=== PATIENT | female | born 1930 | race African-American/Black ===

== ENCOUNTER 2019-06-04 22:49 | Inpatient (IN) | payer MEDICARE, OTHER ==
[~2019-06-04] VITALS: Ht 162.6 cm; Wt 76.6 kg
[~2019-06-04 22:49] MED LIST: ACE650RS PR; AML5T PO; ASPI-231 PO; ATOR10TA52 PO; HYDR-531 PO; HYOS0.1250 PO; INSU70IN3 SC; LEVO175T31 PO; LEVO750T64 PO; MECL1TAB42 PO; METO-169 PO
[2019-06-04] MEDS ORDERED: InsuLIN REG 1unit/0.01ml Soln (100units/ml) IV ONE (23:15)
[2019-06-04 23:32] LABS: Basophils # (auto) 0 uL; Basophils % (auto) 0.4 % (0.0-2.0); Eosinophils # (auto) 0.1 uL; Eosinophils % (auto) 1.1 % (0.0-7.0); Lymphocytes # (auto) 0.8 uL; Lymphocytes % (auto) 8.5 % (10.0-50.0); Mean Corpuscular Hemoglobin 26.1 pg (28.0-32.0); Mean Corpuscular Hgb Conc. 32.5 g/dL (32.0-36.0); Mean Corpuscular Volume 80.3 fL (80.0-100.0); Monocytes # (auto) 0.6 uL; Monocytes % (auto) 6.6 % (0.0-12.0); Neutrophils # (auto) 7.9 uL; Neutrophils % (auto) 83.4 % (37.0-80.0); Nucleated Red Blood Cells % 0.1 %; Platelet Count (auto) 277 10^3/uL (140-450); Red Blood Cells 4.61 10^6/uL (4.0-5.20); Red Cell Distribution Width 17.2 % (11.8-14.3); White Blood Cell 9.4 10^3/uL (4.4-10.8)
[2019-06-04 23:46] LABS: INR 1.01 (0.9-1.15); Partial Thromboplastin Time 28.8 sec (23.64-32.05)
[2019-06-04 23:54] LABS: Alanine Aminotransferase 16 U/L (13-56); Albumin 3.6 g/dL (3.4-5.0); Anion Gap 7 (5-15); Aspartate Aminotransferase 11 U/L (15-37); BUN/Creatinine Ratio 14.3; Blood Urea Nitrogen 12 mg/dL (7-18); Calcium 9.1 mg/dL (8.5-10.1); Carbon Dioxide 27 mmol/L (21-32); Chloride 96 mmol/L (98-107); GFR African American 82 mL/min; GFR Non-African American 68 mL/min; Potassium 3.9 mmol/L (3.5-5.1); Sodium 130 mmol/L (136-145)
[2019-06-05 00:46] LABS: Alkaline Phosphatase 93 U/L (45-117); Bilirubin, Total 0.5 mg/dL (0.2-1.0); Total Protein 8.8 g/dL (6.4-8.2)
[2019-06-05 00:47] LABS: Glucose 539 mg/dL (74-106)
[2019-06-05] MEDS ORDERED: SODIUM CHLORIDE 0.9% 1,000 ML IV SCH (07:13)
[2019-06-05] MEDS ORDERED: NITROGLYCERIN 0.4 MG SL TAB SL PRN (07:15)
[2019-06-05] MEDS ORDERED: MORPHINE SULF INJ 2 MG/ML SYRINGE 1ML IV PRN (07:15)
[2019-06-05] MEDS ORDERED: DEXTROSE (50%) 50ML SYRG IV PRN ×2 (07:15→15:15)
[2019-06-05] MEDS ORDERED: ONDANSETRON HCL 4 MG/2 ML VIAL IV PRN (07:15)
[2019-06-05] MEDS: ACCU-CHEK COMFORT CURVE STRIP VI SCH ×4 (08:30→21:56)
[2019-06-05] MEDS: InsuLIN REG 1unit/0.01ml Soln (100units/ml) SC SCH ×4 (09:00→21:55)
[2019-06-05] MEDS: LEVOTHYROXINE SODIUM 50 MCG TAB PO SCH (09:44)
[2019-06-05] MEDS: METOPROLOL SUCCINATE XL 50 MG TAB PO SCH (09:44)
[2019-06-05] MEDS: amLODIPine BESYLATE 5 MG TAB PO SCH (09:44)
[2019-06-05] MEDS ORDERED: HYDR2.5L TOP (12:58)
[2019-06-05 13:00] VITALS: BP 163/90
[2019-06-05 14:36] VITALS: BP 133/68
[2019-06-05] MEDS ORDERED: cefTRIAXone 1GM/50ML D5W 50 ML IV ONE (15:15)
[2019-06-05] MEDS: SODIUM CHLORIDE 0.9% 1,000 ML IV SCH (15:35)
[2019-06-05] MEDS ORDERED: AZITHROMYCIN 500MG/ 250ML 250 ML IV ONE (16:15)
[2019-06-05 17:00] VITALS: BP 123/60
[2019-06-05] MEDS: DOCUSATE SOD 100 MG CAP PO PRN (17:26)
[2019-06-05 20:00] VITALS: BP 123/61
[2019-06-05] MEDS: ATORVASTATIN 20 MG TAB PO SCH (21:53)
[2019-06-05] MEDS: INSULIN LANTUS (GLARGINE) 1 /0.01ml (100units/ml) SC SCH (21:55)
[2019-06-05] MEDS: ACETAMINOPHEN 325 MG TAB PO PRN (21:56)
[2019-06-05 22:00] VITALS: BP 123/61
[2019-06-06] VITALS (7 sets, daily range): BP systolic 90–133; BP diastolic 50–68
[2019-06-06] MEDS: InsuLIN REG 1unit/0.01ml Soln (100units/ml) SC SCH ×4 (06:38→21:58)
[2019-06-06] MEDS: ACCU-CHEK COMFORT CURVE STRIP VI SCH ×4 (06:38→21:59)
[2019-06-06] MEDS: HYDROcodone-ACET 5/325MG TAB PO PRN (06:39)
[2019-06-06] MEDS: SODIUM CHLORIDE 0.9% 1,000 ML IV SCH (06:50)
[2019-06-06 07:16] LABS: Basophils # (auto) 0 10 ^3/uL (0-0.2); Eosinophils # (auto) 0.2 10 ^3/uL (0-0.8); Eosinophils % (auto) 3.2 % (0.0-7.0); Hemoglobin 11.4 g/dL (12.2-16.2); Monocytes # (auto) 0.4 10 ^3/uL (0-1.3); Neutrophils # (auto) 3.9 10 ^3/uL (1.6-8.6); Nucleated Red Blood Cells % 0.1 %; White Blood Cell 5.5 10^3/uL (4.4-10.8)
[2019-06-06 07:19] LABS: Basophils % (auto) 0.6 % (0.0-2.0); Hematocrit 34.3 % (36.0-46.0); Lymphocytes % (auto) 18.2 % (10.0-50.0); Mean Corpuscular Hemoglobin 26.4 pg (28.0-32.0); Mean Corpuscular Hgb Conc. 33.4 g/dL (32.0-36.0); Mean Corpuscular Volume 79.1 fL (80.0-100.0); Monocytes % (auto) 6.5 % (0.0-12.0); Neutrophils % (auto) 71.5 % (37.0-80.0); Platelet Count (auto) 263 10^3/uL (140-450); Red Blood Cells 4.33 10^6/uL (4.0-5.20); Red Cell Distribution Width 17.5 % (11.8-14.3)
[2019-06-06 07:33] LABS: Calcium 9.1 mg/dL (8.5-10.1); Magnesium 2.1 mg/dL (1.6-2.6); Potassium 3.4 mmol/L (3.5-5.1)
[2019-06-06 07:36] LABS: BUN/Creatinine Ratio 21.5
[2019-06-06] MEDS: cefTRIAXone 1GM/50ML D5W 50 ML IV SCH (09:19)
[2019-06-06] MEDS: amLODIPine BESYLATE 5 MG TAB PO SCH (09:36)
[2019-06-06] MEDS: METOPROLOL SUCCINATE XL 50 MG TAB PO SCH (09:37)
[2019-06-06] MEDS: ENOXAPARIN SOD 40 MG/0.4 ML SYRINGE SC SCH (09:38)
[2019-06-06] MEDS: PANTOPRAZOLE 40 MG TAB PO SCH (09:38)
[2019-06-06] MEDS: LEVOTHYROXINE SODIUM 50 MCG TAB PO SCH (09:38)
[2019-06-06] MEDS: ASPirin-EC 81 mg tab PO SCH (09:38)
[2019-06-06] MEDS: AZITHROMYCIN 500MG/ 250ML 250 ML IV SCH (11:53)
[2019-06-06] MEDS: DOCUSATE SOD 100 MG CAP PO PRN (12:26)
[2019-06-06] MEDS ORDERED: LACTULOSE 20Gm/30ML SOLN PO ONE (14:30)
[2019-06-06] MEDS ORDERED: ALUM & MAG HYDROX-SIMETH LIQ(MAALOX) 30 ML GT PRN (14:30)
[2019-06-06] MEDS ORDERED: DOCUSATE SOD 100 MG CAP PO ONE (14:30)
[2019-06-06] MEDS: diphenhdrAMINE HCL 25 MG CAP PO PRN (14:50)
[2019-06-06] MEDS: ATORVASTATIN 20 MG TAB PO SCH (21:58)
[2019-06-06] MEDS: DOCUSATE SOD 100 MG CAP PO SCH (21:58)
[2019-06-06] MEDS: INSULIN LANTUS (GLARGINE) 1 /0.01ml (100units/ml) SC SCH (21:59)
[2019-06-06] MEDS: NYSTATIN TOPICAL POWDER 15GM TOP SCH (22:00)
[2019-06-07 05:00] VITALS: BP 127/63
[2019-06-07] MEDS: ACCU-CHEK COMFORT CURVE STRIP VI SCH ×4 (06:30→22:08)
[2019-06-07] MEDS: InsuLIN REG 1unit/0.01ml Soln (100units/ml) SC SCH ×4 (06:31→22:08)
[2019-06-07] MEDS: HYDROcodone-ACET 5/325MG TAB PO PRN (06:31)
[2019-06-07 06:36] LABS: Basophils # (auto) 0 10 ^3/uL (0-0.2); Basophils % (auto) 0.7 % (0.0-2.0); Eosinophils # (auto) 0.2 10 ^3/uL (0-0.8); Hemoglobin 10.3 g/dL (12.2-16.2); Monocytes # (auto) 0.4 10 ^3/uL (0-1.3); Nucleated Red Blood Cells % 0.1 %
[2019-06-07 06:41] LABS: Eosinophils % (auto) 3.5 % (0.0-7.0); Hematocrit 31.6 % (36.0-46.0); Lymphocytes % (auto) 18.8 % (10.0-50.0); Mean Corpuscular Hgb Conc. 32.5 g/dL (32.0-36.0); Monocytes % (auto) 8.2 % (0.0-12.0); Neutrophils # (auto) 3.7 10 ^3/uL (1.6-8.6); Neutrophils % (auto) 68.8 % (37.0-80.0); Platelet Count (auto) 241 10^3/uL (140-450); Red Blood Cells 3.96 10^6/uL (4.0-5.20); Red Cell Distribution Width 17.4 % (11.8-14.3); White Blood Cell 5.3 10^3/uL (4.4-10.8)
[2019-06-07 06:47] LABS: BUN/Creatinine Ratio 13.8; Calcium 8.4 mg/dL (8.5-10.1); Magnesium 2.3 mg/dL (1.6-2.6); Potassium 3.4 mmol/L (3.5-5.1)
[2019-06-07 09:00] VITALS: BP 126/69
[2019-06-07] MEDS: cefTRIAXone 1GM/50ML D5W 50 ML IV SCH (09:32)
[2019-06-07] MEDS: amLODIPine BESYLATE 5 MG TAB PO SCH (09:40)
[2019-06-07] MEDS: LEVOTHYROXINE SODIUM 50 MCG TAB PO SCH (09:41)
[2019-06-07] MEDS: PANTOPRAZOLE 40 MG TAB PO SCH (09:41)
[2019-06-07] MEDS: METOPROLOL SUCCINATE XL 50 MG TAB PO SCH (09:42)
[2019-06-07] MEDS: ASPirin-EC 81 mg tab PO SCH (09:42)
[2019-06-07] MEDS: DOCUSATE SOD 100 MG CAP PO SCH ×3 (09:42→22:07)
[2019-06-07] MEDS: ENOXAPARIN SOD 40 MG/0.4 ML SYRINGE SC SCH (09:43)
[2019-06-07] MEDS: AZITHROMYCIN 500MG/ 250ML 250 ML IV SCH (09:43)
[2019-06-07] MEDS: NYSTATIN TOPICAL POWDER 15GM TOP SCH ×2 (09:43→22:08)
[2019-06-07] MEDS ORDERED: POTASSIUM CHL 20 Meq TABLET PO ONE (09:45)
[2019-06-07 21:21] LABS: Urine Bacteria MANY /hpf (None Seen); Urine Blood 2+ /uL (Negative); Urine Budding Yeast LOADED /hpf (None Seen); Urine Specific Gravity 1.017 (1.001-1.035); Urine WBC 179 /hpf (0 - 5)
[2019-06-07 22:00] VITALS: BP 139/68
[2019-06-07] MEDS: ATORVASTATIN 20 MG TAB PO SCH (22:07)
[2019-06-07] MEDS: INSULIN LANTUS (GLARGINE) 1 /0.01ml (100units/ml) SC SCH (22:08)
[2019-06-07] MEDS: ACETAMINOPHEN 325 MG TAB PO PRN (22:33)
[2019-06-08] MEDS: diphenhdrAMINE HCL 25 MG CAP PO PRN ×3 (00:17→21:57)
[2019-06-08 05:00] VITALS: BP 120/61
[2019-06-08] MEDS: InsuLIN REG 1unit/0.01ml Soln (100units/ml) SC SCH ×4 (06:53→21:56)
[2019-06-08] MEDS: ACCU-CHEK COMFORT CURVE STRIP VI SCH ×4 (06:54→21:56)
[2019-06-08] MEDS: cefTRIAXone 1GM/50ML D5W 50 ML IV SCH (08:38)
[2019-06-08 08:58] LABS: Potassium 4.2 mmol/L (3.5-5.1)
[2019-06-08 09:00] VITALS: BP 102/48
[2019-06-08 09:04] LABS: BUN/Creatinine Ratio 7.3; Calcium 9.2 mg/dL (8.5-10.1); Magnesium 2.4 mg/dL (1.6-2.6)
[2019-06-08] MEDS: METOPROLOL SUCCINATE XL 50 MG TAB PO SCH (10:00)
[2019-06-08] MEDS: amLODIPine BESYLATE 5 MG TAB PO SCH (10:00)
[2019-06-08] MEDS: AZITHROMYCIN 500MG/ 250ML 250 ML IV SCH (10:03)
[2019-06-08] MEDS: ASPirin-EC 81 mg tab PO SCH (10:07)
[2019-06-08] MEDS: DOCUSATE SOD 100 MG CAP PO SCH ×2 (10:07→21:55)
[2019-06-08] MEDS: PANTOPRAZOLE 40 MG TAB PO SCH (10:07)
[2019-06-08] MEDS: LEVOTHYROXINE SODIUM 50 MCG TAB PO SCH (10:08)
[2019-06-08] MEDS: NYSTATIN TOPICAL POWDER 15GM TOP SCH ×2 (10:09→21:56)
[2019-06-08] MEDS: ENOXAPARIN SOD 40 MG/0.4 ML SYRINGE SC SCH (10:09)
[2019-06-08 13:00] VITALS: BP 129/51
[2019-06-08] MEDS: HYDROcodone-ACET 5/325MG TAB PO PRN (16:04)
[2019-06-08 16:54] VITALS: BP 135/76
[2019-06-08] MEDS: ATORVASTATIN 20 MG TAB PO SCH (21:55)
[2019-06-08] MEDS: INSULIN LANTUS (GLARGINE) 1 /0.01ml (100units/ml) SC SCH (21:56)
[2019-06-08 22:00] VITALS: BP 128/65
[2019-06-09 05:00] VITALS: BP 138/71
[2019-06-09] MEDS: InsuLIN REG 1unit/0.01ml Soln (100units/ml) SC SCH (06:38)
[2019-06-09] MEDS: ACCU-CHEK COMFORT CURVE STRIP VI SCH (06:39)
[2019-06-09] MEDS: cefTRIAXone 1GM/50ML D5W 50 ML IV SCH (08:52)
[2019-06-09 09:00] VITALS: BP 117/56
[2019-06-09] MEDS: LEVOTHYROXINE SODIUM 50 MCG TAB PO SCH (09:39)
[2019-06-09] MEDS: PANTOPRAZOLE 40 MG TAB PO SCH (09:39)
[2019-06-09] MEDS: ASPirin-EC 81 mg tab PO SCH (09:39)
[2019-06-09] MEDS: DOCUSATE SOD 100 MG CAP PO SCH (09:39)
[2019-06-09] MEDS: ENOXAPARIN SOD 40 MG/0.4 ML SYRINGE SC SCH (09:39)
[2019-06-09] MEDS: METOPROLOL SUCCINATE XL 50 MG TAB PO SCH (09:40)
[2019-06-09] MEDS: amLODIPine BESYLATE 5 MG TAB PO SCH (09:40)
[2019-06-09] MEDS: diphenhdrAMINE HCL 25 MG CAP PO PRN (10:05)
[2019-06-09] MEDS: AZITHROMYCIN 500MG/ 250ML 250 ML IV SCH (10:14)
[2019-06-09] MEDS: NYSTATIN TOPICAL POWDER 15GM TOP SCH (10:15)
[2019-06-09 10:24] VITALS: BP 117/56
== END 2019-06-09 11:59 | disposition hospice, home (50) | DRG 194 ==
LOC: EDBD 22:49 → ER 22:49 → TELE 22:50 → TELE-EAST 06-05 10:32
PROVIDERS: ADMIT Hospitalist; ATTEND Internal Medicine Geriatric Medicine
DX: J18.9 Pneumonia, unspecified organism (principal); E87.1 Hypo-osmolality and hyponatremia; N39.0 Urinary tract infection, site not specified; J90 Pleural effusion, not elsewhere classified; E11.65 Type 2 diabetes mellitus with hyperglycemia; E03.9 Hypothyroidism, unspecified; I10 Essential (primary) hypertension; Z51.5 Encounter for palliative care; E11.649 Type 2 diabetes mellitus with hypoglycemia without coma; K21.9 Gastro-esophageal reflux disease without esophagitis; K59.00 Constipation, unspecified; Z88.0 Allergy status to penicillin; Z79.899 Other long term (current) drug therapy; Z86.73 Personal history of transient ischemic attack (TIA), and cerebral infarction without residual deficits; Z79.4 Long term (current) use of insulin; Z79.82 Long term (current) use of aspirin
CPT/HCPCS: 36415; 71045; 80048; 80053; 80061; 81001; 82010; 82962; 83036; 83735; 83880; 84443; 84484; 85025; 85610; 85730; 87086; 87804; 93005; 93306; 96361; 96374; 97110; 97530; G0378; J0696; J1815